=== PATIENT | male | born 1980 | race Caucasian/White ===

== ENCOUNTER 2019-11-04 13:55 | Emergency (ER) | payer MEDICAID ==
[~2019-11-04] VITALS: Ht 185.4 cm; Wt 118.2 kg
[2019-11-04 14:01] VITALS: Ht 185.4 cm; Wt 118.2 kg
[2019-11-04 14:40] LABS: BASOPHILS 0.3 % (0-2); EOSINOPHILS 1.3 % (0-7); HEMATOCRIT 45.2 % (42.0-54.0); HEMOGLOBIN 15.8 g/dL (13.5-17.5); IMMATURE GRANULOCYTES 0.2 % (0-5); LYMPHOCYTES 21.7 % (15-50); MCH 32.1 pg (26.0-34.0); MCV 91.9 fL (80.0-100.0); MEAN PLATELET VOLUME 8.7 fL (7.4-10.4); MONOCYTES 7.5 % (2-11); PLATELET COUNT 264 10x3/uL (130-400); RBC 4.92 10x6/uL (4.20-6.10); RDW 12.4 % (11.5-14.5); WBC 9.5 10x3/uL (4.8-10.8)
[2019-11-04 15:02] LABS: CALC OSMOLALITY 280 mosm/kg (275-300); CALCIUM 8.3 mg/dL (8.5-10.1); CARBON DIOXIDE 28.8 mmol/L (21.0-32.0); CHLORIDE - SERUM 104 mmol/L (98-107); GLUCOSE 101 mg/dL (74-106); POTASSIUM - SERUM 4.3 mmol/L (3.5-5.1); SODIUM 139 mmol/L (136-145); UREA NITROGEN 21 mg/dL (7-18); eGFR NON AFRICAN AMERICAN 88 mL/min (90-120)
[2019-11-04 15:09] LABS: ALBUMIN 3.7 g/dL (3.4-5.0); ALKALINE PHOSPHATASE 59 U/L (30-120); ALT (SGPT) 40 U/L (10-68); BILIRUBIN - TOTAL 0.43 mg/dL (0.2-1.3); CKMB 0.8 U/L (0.0-3.6); CREATINE KINASE 120 UL (21-232); PRO BNP 29 pg/mL (0-125); PROTEIN - SERUM 7.4 g/dL (6.4-8.2); TROPONIN-I < 0.017 ng/mL (0.000-0.060)
[2019-11-04 15:17] LABS: APTT 25.5 SECONDS (22.8-39.4); INR 0.89 (0.85-1.17)
[2019-11-04] MEDS ORDERED: PROAIR HFA8.5 G1 INH (15:56)
[2019-11-04] MEDS ORDERED: LISINOPRIL20 MG PO (15:56)
[2019-11-04] MEDS ORDERED: ZPAK PO (15:56)
[2019-11-04 16:08] VITALS: BP 145/60
== END 2019-11-04 16:10 | disposition home or self-care (01) ==
LOC: D.ER 13:55
PROVIDERS: Family Medicine
DX: J40 Bronchitis, not specified as acute or chronic (principal); I10 Essential (primary) hypertension; Z72.0 Tobacco use; R06.02 Shortness of breath

== ENCOUNTER 2019-11-18 14:26 | Emergency (ER) | payer MEDICAID ==
[~2019-11-18] VITALS: Ht 185.4 cm; Wt 118.2 kg
[~2019-11-18 14:26] MED LIST: LISINOPRIL20 MG PO; PROAIR HFA8.5 G1 INH; ZPAK PO
[2019-11-18 14:37] VITALS: Ht 185.4 cm; Wt 118.2 kg
[2019-11-18 16:20] VITALS: BP 120/68
== END 2019-11-18 16:21 | disposition home or self-care (01) ==
LOC: D.ER 14:26
DX: Z02.79 Encounter for issue of other medical certificate (principal); I10 Essential (primary) hypertension

== ENCOUNTER 2020-01-17 19:04 | Emergency (ER) | payer MEDICAID ==
[~2020-01-17] VITALS: Ht 185.4 cm; Wt 118.2 kg
[2020-01-17 19:14] VITALS: Ht 185.4 cm; Wt 118.2 kg
[2020-01-17 19:45] LABS: BASOPHILS 0.4 % (0-2); EOSINOPHILS 3.5 % (0-7); HEMATOCRIT 45.2 % (42.0-54.0); HEMOGLOBIN 15.5 g/dL (13.5-17.5); IMMATURE GRANULOCYTES 0.1 % (0-5); LYMPHOCYTES 28.4 % (15-50); MCH 31.8 pg (26.0-34.0); MCHC 34.3 g/dL (31.0-37.0); MCV 92.6 fL (80.0-100.0); MONOCYTES 6.9 % (2-11); NEUTROPHILS 60.7 % (40-80); PLATELET COUNT 245 10x3/uL (130-400); RBC 4.88 10x6/uL (4.20-6.10); WBC 8.6 10x3/uL (4.8-10.8)
[2020-01-17 20:01] LABS: ANION GAP 13.2 mmol/L (8-16); CALCIUM 8.5 mg/dL (8.5-10.1); CARBON DIOXIDE 27.8 mmol/L (21.0-32.0); CREATININE - SERUM 1.3 mg/dL (0.6-1.3)
[2020-01-17 20:08] LABS: BILIRUBIN NEGATIVE (NEGATIVE); GLUCOSE NEGATIVE (NEGATIVE); KETONE NEGATIVE (NEGATIVE); NITRITE NEGATIVE (NEGATIVE); RED CELLS - URINE 0-5 /hpf (0-5); SPECIFIC GRAVITY 1.025 (1.005-1.020); UROBILINOGEN NORMAL (NORMAL); WHITE CELLS - URINE 0-5 /hpf (NEGATIVE)
[2020-01-17 20:08] LABS: ALBUMIN 3.7 g/dL (3.4-5.0); BILIRUBIN - TOTAL 0.58 mg/dL (0.2-1.3); PROTEIN - SERUM 7.2 g/dL (6.4-8.2)
[2020-01-17 20:26] LABS: UDS - AMPHET POSITIVE QUAL (NEGATIVE); UDS - BARB NEGATIVE QUAL (NEGATIVE); UDS - BENZO NEGATIVE QUAL (NEGATIVE); UDS - COCAINE NEGATIVE QUAL (NEGATIVE); UDS - OPIATE POSITIVE QUAL (NEGATIVE); UDS - PCP NEGATIVE QUAL (NEGATIVE); UDS - THC POSITIVE QUAL (NEGATIVE)
[2020-01-17 21:14] VITALS: BP 140/85
== END 2020-01-17 21:14 | disposition home or self-care (01) ==
LOC: D.ER 19:04
PROVIDERS: Family Medicine
DX: R10.9 Unspecified abdominal pain (principal); J45.909 Unspecified asthma, uncomplicated; I10 Essential (primary) hypertension; Z72.0 Tobacco use; M54.5 Low back pain